=== PATIENT | male | born 1990 | race African-American/Black ===

== ENCOUNTER 2016-07-11 14:32 | Emergency (ER) | payer MEDICAID ==
[~2016-07-11] VITALS: Ht 167.6 cm; Wt 73.0 kg
[~2016-07-11 14:32] MED LIST: HYDR-519 PO; albuterol
[2016-07-11 17:25] VITALS: BP 136/84
== END 2016-07-11 19:02 | disposition home or self-care (01) ==
LOC: ER 18:25
DX: H61.23 Impacted cerumen, bilateral (principal); R51 Headache; J45.909 Unspecified asthma, uncomplicated; Z72.0 Tobacco use
CPT/HCPCS: 99282